=== PATIENT | male | born 2000 | race African-American/Black ===

== ENCOUNTER 2023-10-20 17:00 | Outpatient (REF) | payer OTHER, SELFPAY ==
--- NOTE | ~2023-10-20 | MR_ITS ---
EXAMINATION: MR LUMBAR SPINE WITHOUT CONTRAST CLINICAL INFORMATION: Spondylosis, back pain COMPARISON: None available. TECHNIQUE: MRI of the lumbar spine was obtained using routine sequences without the administration of intravenous contrast. FINDINGS: This examination assumes the presence of 5 lumbar type vertebral bodies. For the purposes of this examination, the L5-S1 intervertebral disc space is visualized on axial series 5 image 23. The normal lumbar lordosis is preserved. Trace anterolisthesis of L4-L5. Lumbar vertebral body heights are maintained. There is edema along the left L4 pedicle and posterior elements with perifacet inflammatory changes. Likely trace edema at S2-S3. The conus medullaris and cauda equina nerve roots are unremarkable; the conus terminates at the level of L1-L2. L1-L2: No significant spinal canal or neural foraminal stenosis. L2-L3: No significant spinal canal or neural foraminal stenosis. L3-L4: No significant spinal canal or neural foraminal stenosis. L4-L5: Trace fluid in the right facet joint. No significant spinal canal or neural foraminal stenosis. L5-S1: No significant spinal canal or neural foraminal stenosis. MR/MR lumbar spine wo con IMPRESSION: There is edema in the left L4 pedicle and posterior elements with surrounding inflammatory changes. Finding may be on the basis of stress reaction/degenerative change, but correlation with laboratory values is recommended to exclude an infectious/inflammatory process. No significant spinal canal or neural foraminal stenosis in the lumbar spine.
== END 2023-10-20 17:01 | disposition home or self-care (01) ==
LOC: HO.MRI 17:00
PROVIDERS: Visit Provider Family Medicine Sports Medicine
DX: M43.06 Spondylolysis, lumbar region (principal)
CPT/HCPCS: 72148